=== PATIENT | female | born 1975 | race Caucasian/White ===

== ENCOUNTER 2021-02-01 15:46 | Emergency (ER) | payer OTHER ==
[~2021-02-01] VITALS: Ht 165.1 cm; Wt 108.9 kg
== END 2021-02-01 17:41 | disposition home or self-care (01) ==
LOC: ED 15:46
DX: S61.512A Laceration without foreign body of left wrist, initial encounter (principal); W26.8XXA Contact with other sharp object(s), not elsewhere classified, initial encounter; Y93.89 Activity, other specified; Y92.89 Other specified places as the place of occurrence of the external cause; Y99.8 Other external cause status

== ENCOUNTER 2023-07-27 16:53 | Inpatient (IN) | payer SELFPAY ==
[~2023-07-27] VITALS: Ht 162.5 cm; Wt 99.8 kg
[2023-07-27 17:03] VITALS: BP 159/85
[2023-07-27 17:51] LABS: BASO % 0.3 % (0.0-1.0); EOS % 0.4 % (1.0-4.0); HEMATOCRIT 37.5 % (37.0-47.0); LYMPH # 1.5 10*3/uL (1.3-4.4); LYMPH % 20.2 % (27.0-41.0); MEAN CELL VOLUME 89.1 fl (81.0-99.0); MEAN CORPUSCULAR HGB 29.2 pg (27.0-31.0); MEAN CORPUSCULAR HGB CONC 32.8 g/dl (33.0-37.0); MEAN PLATELET VOLUME 10.4 fl (9.6-12.3); MONO # 0.4 10*3/uL (0.1-1.0); MONO % 4.9 % (3.0-9.0); NEUT # 5.4 10*3/uL (2.3-7.9); NEUT % 73.8 % (47.0-73.0); PLATELET COUNT AUTOMATED 318 10*3/uL (130-400); RED BLOOD COUNT 4.21 10*6/uL (4.10-5.10); RED CELL DISTRI WIDTH 18.4 % (0-14.5); WHITE BLOOD COUNT 7.4 10*3/uL (4.8-10.8)
[2023-07-27 18:12] LABS: ALKALINE PHOSPHATASE 104 U/L (46-116); BUN 15 mg/dl (9-23); CHLORIDE 108 mmol/L (98-107); POTASSIUM 3.7 mmol/L (3.4-5.1); SGPT/ALT 14 U/L (10-49); TOTAL PROTEIN 7.1 gm/dL (6.0-8.0)
[2023-07-27 18:14] LABS: BILIRUBIN Negative (Negative); BLOOD Negative (Negative); CLARITY Clear (Clear); COLOR Yellow (Yellow); GLUCOSE Negative (Negative); KETONE Trace (Negative); LEUKO ESTERASE Trace (Negative); NITRITE Negative (Negative); PH 6.5 (4.5-8.0); SPECIFIC GRAVITY >= 1.030 (1.001-1.030)
[2023-07-27 18:31] LABS: BACTERIA 1+; CALCIUM OXALATE CRYSTALS 1+; RBC 0-2 rbc/hpf (0-2)
[2023-07-28] VITALS (7 sets, daily range): BP systolic 105–145; BP diastolic 40–75
[2023-07-28] MEDS ORDERED: VYVANSE30 MG PO (02:22)
[2023-07-28] MEDS ORDERED: SERTRALINE HYD100 MG PO (02:23)
[2023-07-28 05:56] LABS: ALKALINE PHOSPHATASE 91 U/L (46-116); BUN 12 mg/dl (9-23); CHLORIDE 111 mmol/L (98-107); CHOLESTEROL 152 mg/dL (<200); FREE T4 0.87 ng/dl (0.89-1.76); LDL CHOLESTEROL 73 mg/dL (9-159); POTASSIUM 3.7 mmol/L (3.4-5.1); SGPT/ALT 22 U/L (10-49); TRIGLYCERIDES 80 mg/dl (<150); VITAMIN D, 25-HYDROXY 36.4 ng/mL (30-100)
[2023-07-28 06:07] LABS: BASO % 0.4 % (0.0-1.0); EOS # 0.1 10*3/uL (0.0-0.4); EOS % 1.7 % (1.0-4.0); HEMATOCRIT 33.3 % (37.0-47.0); LYMPH # 1.8 10*3/uL (1.3-4.4); LYMPH % 38.2 % (27.0-41.0); MEAN CELL VOLUME 89.3 fl (81.0-99.0); MEAN CORPUSCULAR HGB 28.7 pg (27.0-31.0); MEAN CORPUSCULAR HGB CONC 32.1 g/dl (33.0-37.0); MEAN PLATELET VOLUME 11.1 fl (9.6-12.3); MONO # 0.3 10*3/uL (0.1-1.0); MONO % 5.9 % (3.0-9.0); NEUT # 2.6 10*3/uL (2.3-7.9); NEUT % 53.6 % (47.0-73.0); PLATELET COUNT AUTOMATED 254 10*3/uL (130-400); RED BLOOD COUNT 3.73 10*6/uL (4.10-5.10); RED CELL DISTRI WIDTH 18.7 % (0-14.5); WHITE BLOOD COUNT 4.8 10*3/uL (4.8-10.8)
[2023-07-29] VITALS: BP 105/58
[2023-07-29 06:13] LABS: BASO % 0.7 % (0.0-1.0); EOS # 0.1 10*3/uL (0.0-0.4); EOS % 2.3 % (1.0-4.0); HEMATOCRIT 31.9 % (37.0-47.0); LYMPH # 1.5 10*3/uL (1.3-4.4); LYMPH % 35.2 % (27.0-41.0); MEAN CELL VOLUME 88.6 fl (81.0-99.0); MEAN CORPUSCULAR HGB 28.9 pg (27.0-31.0); MEAN CORPUSCULAR HGB CONC 32.6 g/dl (33.0-37.0); MEAN PLATELET VOLUME 11.2 fl (9.6-12.3); MONO # 0.3 10*3/uL (0.1-1.0); MONO % 6.4 % (3.0-9.0); NEUT # 2.4 10*3/uL (2.3-7.9); NEUT % 55.2 % (47.0-73.0); PLATELET COUNT AUTOMATED 254 10*3/uL (130-400); RED CELL DISTRI WIDTH 18.1 % (0-14.5); WHITE BLOOD COUNT 4.4 10*3/uL (4.8-10.8)
[2023-07-29 07:56] LABS: ALKALINE PHOSPHATASE 145 U/L (46-116); BUN 12 mg/dl (9-23); CHLORIDE 109 mmol/L (98-107); SGPT/ALT 222 U/L (10-49); TOTAL PROTEIN 5.6 gm/dL (6.0-8.0)
[2023-07-29 08:00] VITALS: BP 137/93
[2023-07-29 08:19] LABS: POTASSIUM 4.8 mmol/L (3.4-5.1)
[2023-07-29 12:00] VITALS: BP 144/81
[2023-07-29 16:10] VITALS: BP 100/47; BP 150/63
[2023-07-29 20:00] VITALS: BP 111/62
[2023-07-30] VITALS: BP 126/64
[2023-07-30 06:41] LABS: ALKALINE PHOSPHATASE 151 U/L (46-116); BUN 13 mg/dl (9-23); CHLORIDE 109 mmol/L (98-107); POTASSIUM 4.4 mmol/L (3.4-5.1); SGPT/ALT 161 U/L (10-49); TOTAL PROTEIN 5.9 gm/dL (6.0-8.0)
[2023-07-30 06:45] LABS: BASO % 0.5 % (0.0-1.0); EOS # 0.1 10*3/uL (0.0-0.4); HEMATOCRIT 31.5 % (37.0-47.0); LYMPH # 1.7 10*3/uL (1.3-4.4); LYMPH % 42.9 % (27.0-41.0); MEAN CELL VOLUME 86.8 fl (81.0-99.0); MEAN CORPUSCULAR HGB 28.7 pg (27.0-31.0); MEAN PLATELET VOLUME 11.2 fl (9.6-12.3); MONO # 0.2 10*3/uL (0.1-1.0); MONO % 5.9 % (3.0-9.0); NEUT % 48.5 % (47.0-73.0); PLATELET COUNT AUTOMATED 242 10*3/uL (130-400); RED BLOOD COUNT 3.63 10*6/uL (4.10-5.10); RED CELL DISTRI WIDTH 17.8 % (0-14.5); WHITE BLOOD COUNT 4.1 10*3/uL (4.8-10.8)
[2023-07-30 08:00] VITALS: BP 116/54
[2023-07-30 12:00] VITALS: BP 110/58
[2023-07-30 16:00] VITALS: BP 153/85
[2023-07-30 20:00] VITALS: BP 111/55
[2023-07-31] VITALS: BP 80/38
[2023-07-31 00:11] VITALS: BP 98/56
[2023-07-31 05:06] LABS: HBSAG Negative (Negative); HEP B CORE AB, IGM Negative (Negative); HEPATITIS C ANTIBODY Non Reactive (Non Reactive)
[2023-07-31 07:07] LABS: BASO % 0.5 % (0.0-1.0); EOS # 0.1 10*3/uL (0.0-0.4); EOS % 2.3 % (1.0-4.0); HEMATOCRIT 28.6 % (37.0-47.0); LYMPH # 1.9 10*3/uL (1.3-4.4); LYMPH % 44.4 % (27.0-41.0); MEAN CORPUSCULAR HGB 29.2 pg (27.0-31.0); MEAN CORPUSCULAR HGB CONC 33.2 g/dl (33.0-37.0); MEAN PLATELET VOLUME 11.6 fl (9.6-12.3); MONO # 0.3 10*3/uL (0.1-1.0); MONO % 6.9 % (3.0-9.0); NEUT % 45.7 % (47.0-73.0); PLATELET COUNT AUTOMATED 216 10*3/uL (130-400); RED BLOOD COUNT 3.25 10*6/uL (4.10-5.10); RED CELL DISTRI WIDTH 18.2 % (0-14.5); WHITE BLOOD COUNT 4.4 10*3/uL (4.8-10.8)
[2023-07-31 07:39] LABS: ALKALINE PHOSPHATASE 130 U/L (46-116); BUN 10 mg/dl (9-23); CHLORIDE 110 mmol/L (98-107); POTASSIUM 4.2 mmol/L (3.4-5.1); SGPT/ALT 148 U/L (10-49); TOTAL PROTEIN 5.1 gm/dL (6.0-8.0)
[2023-07-31 08:00] VITALS: BP 118/55
[2023-07-31 12:00] VITALS: BP 140/88
[2023-07-31 16:00] VITALS: BP 139/70
[2023-07-31 20:00] VITALS: BP 91/50
[2023-08-01] VITALS: BP 102/58
[2023-08-01 07:13] LABS: BASO % 0.6 % (0.0-1.0); EOS # 0.1 10*3/uL (0.0-0.4); HEMATOCRIT 30.5 % (37.0-47.0); LYMPH # 2.1 10*3/uL (1.3-4.4); LYMPH % 41.2 % (27.0-41.0); MEAN CELL VOLUME 90.2 fl (81.0-99.0); MEAN CORPUSCULAR HGB 28.7 pg (27.0-31.0); MEAN CORPUSCULAR HGB CONC 31.8 g/dl (33.0-37.0); MEAN PLATELET VOLUME 11.5 fl (9.6-12.3); MONO # 0.4 10*3/uL (0.1-1.0); MONO % 6.9 % (3.0-9.0); NEUT # 2.5 10*3/uL (2.3-7.9); NEUT % 48.9 % (47.0-73.0); PLATELET COUNT AUTOMATED 194 10*3/uL (130-400); RED BLOOD COUNT 3.38 10*6/uL (4.10-5.10); RED CELL DISTRI WIDTH 18.1 % (0-14.5); WHITE BLOOD COUNT 5.1 10*3/uL (4.8-10.8)
[2023-08-01 07:56] LABS: ALKALINE PHOSPHATASE 124 U/L (46-116); BUN 12 mg/dl (9-23); CHLORIDE 112 mmol/L (98-107); POTASSIUM 4.4 mmol/L (3.4-5.1); SGPT/ALT 107 U/L (10-49); TOTAL PROTEIN 5.4 gm/dL (6.0-8.0)
[2023-08-01 08:00] VITALS: BP 110/45
[2023-08-01 12:00] VITALS: BP 117/60
== END 2023-08-01 13:32 | disposition home or self-care (01) | DRG 389 ==
LOC: ED 16:53 → 4E 07-28 00:50 → EDHOLD 07-28 00:50 → 4E 07-28 16:31
PROVIDERS: Internal Medicine; Nurse Practitioner; Student in an Organized Health Care Education/Training Program; ADMIT Internal Medicine; ATTEND Internal Medicine
DX: K56.1 Intussusception (principal); E44.0 Moderate protein-calorie malnutrition; M84.48XA Pathological fracture, other site, initial encounter for fracture; D64.9 Anemia, unspecified; R82.71 Bacteriuria; K76.0 Fatty (change of) liver, not elsewhere classified; F90.9 Attention-deficit hyperactivity disorder, unspecified type; F41.9 Anxiety disorder, unspecified; E03.9 Hypothyroidism, unspecified; R74.01 Elevation of levels of liver transaminase levels; F17.210 Nicotine dependence, cigarettes, uncomplicated; Z82.61 Family history of arthritis; Z83.3 Family history of diabetes mellitus; Z82.49 Family history of ischemic heart disease and other diseases of the circulatory system; Z79.899 Other long term (current) drug therapy; Z71.6 Tobacco abuse counseling; Z90.49 Acquired absence of other specified parts of digestive tract; Z98.51 Tubal ligation status; Z98.84 Bariatric surgery status; Z68.37 Body mass index [BMI] 37.0-37.9, adult

== ENCOUNTER 2024-11-18 09:56 | Emergency (ER) | payer SELFPAY ==
[~2024-11-18] VITALS: Ht 162.5 cm; Wt 93.0 kg
[~2024-11-18 09:56] MED LIST: SERTRALINE HYD100 MG PO; VYVANSE30 MG PO
[2024-11-18] MEDS ORDERED: Ketorolac Tromethamine 60 MG/2 ML VIAL IM ONE (11:15)
[2024-11-18] MEDS ORDERED: ACETAMINOPHEN 325 MG TAB PO ONE (11:15)
[2024-11-18] MEDS ORDERED: NAPROSYN500 MG PO (13:00)
== END 2024-11-18 13:25 | disposition home or self-care (01) ==
LOC: ED 09:56
DX: S86.911A Strain of unspecified muscle(s) and tendon(s) at lower leg level, right leg, initial encounter (principal); D64.9 Anemia, unspecified; E03.9 Hypothyroidism, unspecified; F41.9 Anxiety disorder, unspecified; F17.210 Nicotine dependence, cigarettes, uncomplicated; Z90.49 Acquired absence of other specified parts of digestive tract; Z98.51 Tubal ligation status; Z90.89 Acquired absence of other organs; Z98.890 Other specified postprocedural states; W00.0XXA Fall on same level due to ice and snow, initial encounter; Y93.89 Activity, other specified; Y92.59 Other trade areas as the place of occurrence of the external cause; Y99.0 Civilian activity done for income or pay